=== PATIENT | female | born 1930 | race Caucasian/White ===

== ENCOUNTER 2017-05-18 16:13 | Emergency (ER) | payer MEDICARE, MEDICAID ==
[2017-05-18] VITALS (13 sets, daily range): BP systolic 90–121; BP diastolic 51–63; PULSE 106–143; RESP 17–36; O2SAT 81–98
[~2017-05-18] VITALS: Ht 134.6 cm; Wt 42.6 kg
--- NOTE | 2017-05-18 15:57 | ED.REPORT ---
HPI-General Illness Date of Service May 18, 2017 ED Provider: Darwin Phan Patient is an 86 year old female with a known hx of COPD who presents to the ED via EMS s/p being found unresponsive on the floor by her son. She was last known normal an hour and a half prior to being found. Meds found to her to have an O2 sat of 33% and GCS of 9. Her LOC and sat improved with a non-rebreather. She arrives responsive to verbal stimuli and following commands. Per son, her O2 is usually in the low 90's. Patient's only complaint is that she wants to sleep. She denies chest pain. Per son, pt has been more fatigued and has had increasing SOB today. She has not missed any of her medications. Medications include Lovastatin, losartan, diltiazem, Combivent, Advair, albuterol, and Cerebra. Code status was discussed with the patient upon arrival. She declines to provide a specific answer and repeatedly states "we will see". She was advised that unless specifically instructed otherwise, we would proceed with putting her on a ventilator. Nursing Notes Stated Complaint: UNRESPONSIVE Nursing Notes Reviewed: Yes Allergies: Coded Allergies: acetaminophen (Verified Allergy, Severe, nausea/vomiting, 04/24/11) hydrocodone bitartrate (Verified Allergy, Severe, nausea/vomiting, 04/24/11 ) aspirin (Verified Adverse Reaction, Severe, "BIGGS STOMACH", 07/25/09) Scheduled Albuterol/Ipratropium (Combivent Respimat Inhal [place]) 120 Spr/4 Gm Inhaler 1 PUFF IH QID Alendronate/Vitamin D3 (Alendronate/Vitamin D3) 1 Each Tablet 1 TAB PO WEEKLY SUNDAYS Diltiazem ER (Diltiazem ER) 180 Mg Cap.er.24h 180 MG PO HS Fluticasone/Salmeterol (Advair 250-50 Diskus) 60 Puff/Inh Disk 1 PUFF IH BID Losartan Potassium (Losartan Potassium) 25 Mg Tablet 25 MG PO BID Lovastatin (Lovastatin) 10 Mg Tablet 10 MG PO HS Tiotropium [place] (Spiriva) 18 Mcg Cap.w.dev 18 MCG IH QAM Scheduled PRN Albuterol HFA (Proair HFA) 8.5 Gm Hfa.aer.ad 2 PUFFS INHALATION Q4H PRN PRN For Shortness of Breath Docusate Sodium (Colace) 100 Mg Capsule 100 MG PO HS PRN PRN For Constipation Oxycodone HCl/Acetaminophen 5-325 (Endocet 5-325) 1 Each Tablet 1 TABLET PO DAILY PRN PRN For Pain General Time Seen by MD: 16:17 Chief Complaint Other (LOC ) Hx Obtained From: Other family..., EMS Arrived By: Ambulance Sudden in Onset?: Yes Onset Occurred: Onset unknown Severity: Current: No pain currently Severity: Maximum: No pain Context Related History: Reports COPD Past Medical History Past Medical History COPD Reports: Hyperlipidemia, Hypertension Past Surgical History surgery for broken leg Smoking History Unknown if Ever Smoker Social History Other Social History: Good social support Review of Systems Full Review of Systems Constitutional: Reports: Fatigue Respiratory: Reports: Shortness of breath (now, but not earlier today) Cardiovascular: Denies: Chest pain Neurologic: Reports: Change LOC Complete sys rev & neg: except as marked. Physical Exam Vital Signs Vital Signs Date Time Temp Pulse Resp B/P Pulse Ox O2 Delivery O2 Flow Rate FiO2 05/18/17 18:35 122 32 107/62 96 BiPAP 05/18/17 18:13 130 31 107/62 97 BiPAP 05/18/17 17:51 129 32 101/62 98 BiPAP 05/18/17 17:14 37.4 140 25 116/52 94 BiPAP 05/18/17 16:25 33 95 100 05/18/17 16:24 143 36 121/58 82 Non-Rebreather 15 05/18/17 16:17 37.1 133 33 121/58 81 Non-Rebreather 15 Initial VS: Reviewed, Vital signs abnormal Head / Eyes: Atraumatic, Normocephalic Neck: Full range of motion Abdomen / GI: Soft, Non-tender Neurologic: Alert, Oriented, Nonfocal Psychiatric: Mood/affect normal, Behavior normal, Normal thought content General/Constitutional: Awake, Alert Distress / Hydration: Positive: Distress moderate Respiratory / Chest: Breath sounds = bilat, No wheezing Poor air movement Cardiovascular: Regular rhythm, Heart sounds NL, No gallop, No murmurs, No rubs Heart Rate / Rhythm: Positive: Tachycardia Skin: Warm, Dry Neurologic: Oriented X3, Speech NL, No motor deficits, Reflexes equal bilat Interpretation & Diagnostics Lab Results Interpretation Result Diagram: 05/18/17 1624 05/18/17 1624 Test 05/18/17 16:16 05/18/17 16:24 05/18/17 17:06 05/18/17 17:07 Hold Purple Top Tube Received (Received) D-Dimer > 99.90mg/L FEU (<0.50) Hold Blue Top Tube Received (Received) Hold [place] Top Tube Received (Received) White Blood Count 24.3th/mm3 (3.8-10.1) Red Blood Count 4.21mil/mm3 (3.90-5.20) Hemoglobin 12.8g/dL (12.0-15.6) Hematocrit 41.2% (35.0-46.0) Mean Corpuscular Volume 97.9fL (81-100) Mean Corpuscular Hemoglobin 30.4pg (27.0-35.0) Mean Corpuscular Hemoglobin Concent 31.1% (32.0-37.0) Red Cell Distribution Width 13.7% (12.3-15.4) Platelet Count 269bil/L (150-400) Neutrophils (%) (Auto) 90.1% (40-74) Lymphocytes (%) (Auto) 3.9% (14-46) Monocytes (%) (Auto) 5.4% (4-12) Eosinophils (%) (Auto) 0% (0-5) Basophils (%) (Auto) 0.1% (0-3) Sodium Level 139mEq/L (134-144) Potassium Level 5.2mEq/L (3.5-5.2) Chloride Level 95mEq/L (97-108) Carbon Dioxide Level 21mmol/L (18-29) Blood Urea Nitrogen 22mg/dL (8-27) Creatinine 1.06mg/dL (0.57-1.00) Estimat Glomerular Filtration Rate 71mL/min (>59) Glucose Level 208mg/dL (60-99) Calcium Level 9.8mg/dL (8.5-10.1) Total Bilirubin 0.8mg/dL (0.0-1.2) Aspartate Amino Transf (AST/SGOT) 30U/L (0-50) Alanine Aminotransferase (ALT/SGPT) 16U/L (0-32) Alkaline Phosphatase 113U/L (25-165) Troponin T 0.047ug/L (0.0-0.011) Pro-B-Type Natriuretic Peptide 1193pg/mL (0-738) Total Protein 8.0g/dL (6.4-8.4) Albumin 4.1g/dL (3.4-5.0) Urine Color Yellow (YELLOW) Urine Appearance Hazy (CLEAR,HAZY) Urine pH 6.0 (5.0-8.0) Urine Specific [place] 1.025 (1.003-1.035) Urine Protein 30mg/dL (NEG,TRACE) Urine Glucose (UA) 100mg/dL (NEGATIVE) Urine Ketones Negativemg/dL (NEGATIVE) Urine Occult Blood Trace (NEGATIVE) Urine Nitrite Negative (NEGATIVE) Urine Bilirubin Negative (NEGATIVE) Urine Urobilinogen Normalmg/dL (NORMAL) Urine Leukocyte Esterase Negative (NEGATIVE) Urine RBC 0-2/hpf (0-2) Urine WBC 0-5/hpf (0-5) Urine Epithelial Cells Few/hpf (NONE-MOD) Urine Crystals None seen (NONE SEEN) Urine Bacteria Few/hpf (NONE-FEW) Urine Hyaline Casts None/lpf (NONE) Urine Granular Casts None seen (NONE SEEN) Urine Waxy Casts None seen (NONE SEEN) Urine Red Blood Cell Casts None seen (NONE SEEN) Urine White Blood Cell Casts None seen (NONE SEEN) Urine Mucus None seen (None Seen) Urine Trichomonas None seen (NONE SEEN) Urine Yeast None (NONE SEEN) Urinalysis Comment None Urine Culture Reflexed Not indicated Lactic Acid Level 3.1mmol/L (0.4-2.0) ECG Interpretation ECG Interpretation: Probable Sinus tachycardia with a rate of 142 low voltage, extremity and precordial leads RVH with secondary repolarization abnormality Time: 16:35 Interpreted by: ED physician ECG Interpretation: clearly sinus tachycardia with a rate [address] segment changes Time: 17:30 Interpreted by: ED physician ABG Interpretation ABG Interpretation: on 15L: pH 7.315 pCO2 56 pO2 53.8 cHCO3- 28.5 Exam Performed by: Allied health pract Exam Interpreted by: ED physician X-Ray Chest Interpretation Chest Xray Interpretation: IMPRESSION: 1. Left basilar consolidation suspicious for aspiration/infection. 2. Possible left pleural effusion. Dictated by: Mackenzie Sandoval M.D. on 05/18/2017 at 16:41 Approved by: Mackenzie Sandoval M.D. on 05/18/2017 at 16:42 View: Portable, 1 view Interpretation / Wet Read by: Interpret - Radiologist CT Chest Interpretation IMPRESSION: 1. No acute pulmonary embolus. 2. Dense bilateral basilar consolidation suspicious for aspiration/infection. 3. Large left low-density pleural effusion. Dictated by: Mackenzie Sandoval M.D. on 05/18/2017 at 18:53 Approved by: Mackenzie Sandoval M.D. on 05/18/2017 at 18:58 Study type: CT pulm angiogram Interpretation / Wet Read by: Interpret - Radiologist CT C-Spine Interpretation IMPRESSION: 1. Robby burst fracture. No definite involvement of the transverse foramina; however the comminuted fractures extend near the transverse foramina, and CT neck angiogram may be helpful to exclude vertebral artery dissection. 2. Angled, displaced type II odontoid fracture. 3. T3 inferior endplate compression deformity with retropulsed fracture fragments and a fracture plane which extends into the T3 spinous process. This is a new finding when compared with the prior chest CT dated 02/08/17. Given the lack of cortication, this likely represents an acute fracture. If further characterization is warranted, MRI may be helpful. These findings were discussed with Dr. Granados at 9:21 PM on 05/18/17. 4. Partially fluid filled right mastoid air cells. No temporal bone fracture visualized; however this is a limited study. If there is clinical concern for temporal bone or skull base fracture, dedicated views of the skull base and temporal bones are recommended. Dictated by: Mackenzie Sandoval M.D. on 05/18/2017 at 21:08 Approved by: Mackenzie Sandoval M.D. on 05/18/2017 at 21:27 Study type: CT no contrast Interpretation / Wet Read by: Interpret - Radiologist, Rohan horner radiologist Procedures Intubation Intubation Procedure: Post intubation CXR shows tip in R mainstem. Pulled back 2cm Time: 23:24 Procedure Performed by: ED physician Consent / Setup / Site Prep: Informed consent provided, Consent from patient , Time-out performed, Oxygen administered, Pulse oximeter applied, hospital monitor applied, Hand hygiene observed, Removed dentures Patient Position: Sniff position, C-spine immobilized Blade / ET Tube / Route: [place] scope, Route: oral Procedural Sedation/Analgesia: Sedation: Ketamine, Analgesia: Fentanyl Neuromuscular Agent: Succinylcholine ET Confirmation: Direct visualization, BS equal, End tidal CO2 device, CXR, Rising O2 sat Secured / Marked: ET tube device, Tube marked at ___ cm (23), Tube marked at lip Complications: None Post-Procedure: Condition improved, Tolerated procedure well, Patient stable Re-Eval/Medical Decision Med Decision/Clinical Course An 86-year-old female who was found down in her home with low oxygen saturations and decreased mental status. Mental status improved however she continued to have significantly decreased oxygenation as compared to her baseline. At baseline I note she is on on 2 L nasal cannula. Evaluation was suggestive of pneumonia with sepsis, blood cultures were obtained she was given Levaquin 500 mg IV and saline total of 1500 mL boluses. She had no gross neurologic deficits but began complaining of neck pain. CT of the cervical spine revealed acute cervical spine fracture. Case was discussed with the transfer center at [facility]. Images were reviewed by the spine surgeon, this was felt to be a nonoperative injury however given the presence of critical minimal medical illness and acute cervical spine fracture and the lack of spine services available at [facility], the patient was accepted at [facility]. Intubation was felt necessary for safe transfer. This was discussed with the patient and family, the patient had initially not vital straight answer as to whether or not she would wish to be intubated, per daughter indicated that she had previously said that she would not wish to be intubated however after discussion with patient and family was elected to proceed with intubation tonight . She was intubated to secure the airway for transfer. Transferred via [facility]. Time of Eval: 17:41 Re-Evaluation/Progress Note: Rechecked pt who now complains of neck pain. Discussed plan for CT. Patient understands and agrees with plan. All questions addressed at this time. Time of Eval: 18:46 Re-Evaluation/Progress Note: Rechecked pt who is looking much better. Discussed code status with family present. Patient is FULL CODE. Discussed plan for admission. Patient understands and agrees with plan. All questions addressed at this time. Time of Eval: 19:13 Re-Evaluation/Progress Note: Pt failed trial of stopping bypap. Time of Eval: 21:19 Re-Evaluation/Progress Note: Rechecked pt. Informed pt and family of CT results and plan to transfer to [facility]. Patient understands and agrees with plan. All questions addressed at this time. Time of Eval: 22:45 Re-Evaluation/Progress Note: Discussed plan for transfer and plan for intubation for transfer. Patient is equivocal and family is discussing. Time of Eval: 23:09 Re-Evaluation/Progress Note: Family has decided to intubate for transfer. Consultation #1: Referral / Consult Name: Jovita Campos DO Consulted With: Hospitalist Call Returned at: 19:43 Public Health Epidemiologist: Will see patient, Agrees with eval, Agrees with plan, Accepts admit Note: Rechecked pt. Accepts admit. Consultation #2: Call Returned at: 21:44 Note: Discussed pt's case with automotive sales specialist, Dr. Hemphill, at [facility]. Will review imaging. Consultation #3: Call Returned at: 22:17 Note: Discussed pt's case with Dr. Hemphill at [facility] who suggests a [place] [facility] and a CTL with spine follow up. They would not like to transfer the pt. Consultation #4: Referral / Consult Name: Gus Smalls MD Consulted With: Orthopedic Call Returned at: 22:27 Note: Discussed pt's case. Reports that we cannot manage pt here. Consultation #5: Call Returned at: 22:35 Public Health Epidemiologist: Agrees with eval, Agrees with plan, Accepts admit Note: Discussed pt's case with Dr. Elizabeth at [facility]. Accepts pt. Counseled Regarding: Diagnosis, Lab results, Need for transfer Discharge & Departure Primary Impression: Respiratory failure with hypoxia Chronicity: unspecified Qualified Code: J96.91 - Respiratory failure, unspecified with hypoxia Additional Impressions: Pneumonia Pneumonia type: due to unspecified organism Laterality: unspecified laterality Lung location: unspecified part of lung Qualified Code: J18.9 - Pneumonia, unspecified organism Cervical spine fracture Encounter type: initial encounter Cervical vertebra fracture level: unspecified cervical vertebra Fracture type: closed Qualified Code: S12.9XXA - Fracture of neck, unspecified, initial encounter Disposition: Transfer, Acute Care Facility Receiving Hospital: Mr. Elizabeth at [facility] Transfer Accepted: Yes Transfer Accepted at: 22:47 Transfer Reason: Higher level of care Patient Status: Stable for transfer Patient Informed: Yes Discharge Condition All VS Reviewed: Yes Condition: Stable Referrals: Paz Palomares PA-C (PCP) Crit Care Except Billable Proc Time Spent: 75-104 minutes Services Performed: Patient management by me, Time spent at bedside, Reviewing test results, Reviewing imaging, Discussing patient care, Documentation in record, Time with fam/surrogate Critical Care Notes: required multiple re-evaluations, extensive discussion with family and accepting physicians Scribe Attestation Portions of this note were transcribed by Rachel Naranjo. I, Dr. Granados personally performed the history, physical exam and medical decision-making; I reviewed and confirmed the accuracy of the information in the transcribed note. Signed by: Jing Ribeiro, 05/18/17 copies to: Paz Palomares PA-C, Donald L MD May 18, 2017 15:57 RACHEL NARANJO May 18, 2017 16:04
[~2017-05-18 16:13] MED LIST: ALBU17AE22 INH; BONIVA IV; CMBV14.7IN INH; DOCU100T7 PO; LOVA10TA PO; OXYC-176 PO; [UNRECOGNIZED DRUG - CODE] PO
[2017-05-18] MEDS ORDERED: Succinylcholine Chloride 20 mg/mL 5 mL Inj ONE (16:14)
[2017-05-18] MEDS ORDERED: Ketamine 10 mg/mL 20 mL Inj ONE (16:14)
[2017-05-18] MEDS ORDERED: Albuterol-Ipratropium 3 mL Inhalation Solution NEB ONE (16:20)
--- NOTE | 2017-05-18 16:25 | ABG ---
DateTimeAnalyzed 16:16:04 -_ pH ____7.315 - 7.350 7.450 pCO2 ___55.9__ -mmHg 35.0 45.0 pO2 ___53.8__ -mmHg 69.0 116 HCO3- ___28.5__ -mmol/L 22.0 26.0 ABE ____1.9__ -mmol/L -2.0 2.0 tHb ___11.6__ -g/dL 12.0 18.0 O2Hb ___83.2__ -% COHb ____2.0__ -% 0.0 1.5 MetHb ____0.0__ -% 0.4 1.5 sO2 ___84.7__ -% FIO2 ___90.0__ -% Drawn By jmw - Date/Time Notified____ 16:24:00 -_ Liter_Flow ___15.00_ -L/min Oxygen Device 1 NON RE-TEJINDER - Notified By jmw - Notified Whom _DR SLACK - K+ ____4.1__ -mmol/L 3.5 5.0 tO2 ___13.5__ -Vol% Jose test _Positive -
[2017-05-18 16:27] LABS: BASOPHILS % (AUTO) 0.1 % (0-3); EOSINOPHILS % (AUTO) 0 % (0-5); MONOCYTES % (AUTO) 5.4 % (4-12); Mean Corpuscular Hemoglobin 30.4 pg (27.0-35.0); Mean Corpuscular Volume 97.9 fL (81-100); NEUTROPHILS % (AUTO) 90.1 % (40-74); Platelet Count 269 bil/L (150-400)
[2017-05-18] MEDS ORDERED: MethylprednisoLONE Sodium Succinate 62.5 mg/mL 2 mL Inj ONE (16:34)
[2017-05-18] MEDS ORDERED: MethylprednisoLONE Sodium Succinate 62.5 mg/mL 2 mL Inj IVPUSH ONE (16:35)
--- NOTE | 2017-05-18 16:44 | DRSVH ---
PROCEDURE: X-RAY CHEST ONE VIEW, PORTABLE ([id number]) INDICATIONS: dyspnea and hypoxemia TECHNIQUE: One view of the chest was acquired. COMPARISON: [facility], CR, XR CHEST 2VW, 02/05/2017, 12:27. FINDINGS: Surgical changes and devices: None. Lungs and pleura: There is left basilar consolidation similar in appearance to the study dated 7. There are diffuse interstitial opacities bilaterally. No pneumothorax. There may be a left pleural effusion as well. Mediastinum: Mediastinal contours appear normal. Heart size is normal. Bones and chest wall: No suspicious bony lesions. Overlying soft tissues appear unremarkable. IMPRESSION: 1. Left basilar consolidation suspicious for aspiration/infection. 2. Possible left pleural effusion. Dictated by: Mackenzie Sandoval M.D. on 05/18/2017 at 16:41 Approved by: Mackenzie Sandoval M.D. on 05/18/2017 at 16:42
[2017-05-18 17:07] LABS: TROPONIN T 0.047 ug/L (0.0-0.011)
[2017-05-18] MEDS ORDERED: 0.9% Sodium Chloride 500 ML IV ONE ×2 (17:10→18:50)
[2017-05-18 17:15] LABS: APPEARANCE,URINE HAZY (CLEAR,HAZY); COLOR,URINE YELLOW (YELLOW)
[2017-05-18 17:16] LABS: OCCULT BLOOD,URINE TRACE (NEGATIVE); UROBILINOGEN,URINE NORMAL (NORMAL)
[2017-05-18] MEDS ORDERED: levoFLOXacin Inj 500 MG in IV Premix 1 EACH IV ONE (18:50)
--- NOTE | 2017-05-18 19:00 | DRSVH ---
PROCEDURE: CT ANGIO CHEST PULMONARY EMBOLISM ([id number]) INDICATIONS: tachycardia and hypoxemia TECHNIQUE: After the administration of intravenous contrast, 2 mm thick sections acquired from the pulmonary api brandon to the posterior costophrenic angles. 3-dimensional maximum intensity projection (MIP) coronal a nd sagittal reformats were then acquired through the thorax. For radiation dose reduction, the follo wing was used: automated exposure control, adjustment of mA and/or kV according to patient size. COMPARISON: [facility], CT, CT CHEST WO CON, 02/08/2017, 12:03. FINDINGS: Image quality: Excellent. Pulmonary arteries: Pulmonary arteries are normal in size, and demonstrate no intraluminal filling d efects to suggest central pulmonary embolism. Lungs and pleura: There is severe centrilobular emphysema. There is a large left low-density pleural effusion. Consolidation is present at the bilateral lung bases. No pneumothorax. Mediastinum: Heart size is normal, without pericardial effusion. No mediastinal or hilar adenopathy . Thoracic aorta is normal in caliber and enhancement. Dense atheromatous calcification and atheroma tous plaque is present throughout the thoracic aorta. Esophagus is normal in caliber, without hiatal hernia. Bones and chest wall: Severe kyphosis is present throughout the thoracic spine secondary to multiple severe wedge compression deformities. These are similar in extent to the CT of the chest dated 7. Thyroid gland is poorly characterized.. No axillary or supraclavicular adenopathy. Abdomen: Visualized upper abdominal solid organs appear normal in the early arterial phase of enhanc ement. IMPRESSION: 1. No acute pulmonary embolus. 2. Dense bilateral basilar consolidation suspicious for aspiration/infection. 3. Large left low-density pleural effusion. Dictated by: Mackenzie Sandoval M.D. on 05/18/2017 at 18:53 Approved by: Mackenzie Sandoval M.D. on 05/18/2017 at 18:58
[2017-05-18] MEDS ORDERED: ALBU8.5H2 INHALATION (19:41)
[2017-05-18] MEDS ORDERED: ALEN70TA46 PO (19:41)
[2017-05-18] MEDS ORDERED: DOCU-41 PO (19:43)
[2017-05-18] MEDS ORDERED: IPRA4AER IH (19:43)
[2017-05-18] MEDS ORDERED: LOVA10TA PO (19:43)
[2017-05-18] MEDS ORDERED: DILT180C83 PO (19:43)
[2017-05-18] MEDS ORDERED: TIOT18CA3 IH (19:43)
[2017-05-18] MEDS ORDERED: OXYC-407 PO (19:43)
[2017-05-18] MEDS ORDERED: LOSA25TA21 PO (19:44)
[2017-05-18] MEDS ORDERED: ADV250INH IH (19:45)
[2017-05-18] MEDS ORDERED: Alum-Mag Hydrox-Simeth 30 mL Suspension PO PRN (19:55)
[2017-05-18] MEDS ORDERED: Ondansetron 2 mg/mL 2 mL Inj IVPUSH PRN (19:55)
[2017-05-18] MEDS ORDERED: Albuterol 2.5 mg/3 mL Inhalation Solution NEB PRN (20:05)
[2017-05-18] MEDS ORDERED: Albuterol-Ipratropium 3 mL Inhalation Solution NEB SCH (20:30)
--- NOTE | 2017-05-18 21:14 | PCM.HPMED ---
Subjective Date of Service May 18, 2017 Primary Provider: Admitting Physician: Jovita Campos DO Primary Care Physician: Paz Palomares PA-C Attending Physician: Jovita Campos DO Admit Status: From the Emergency Department, Critical Care Chief Complaint: Decreased level of consciousness and shortness of breath Review of Systems: Comprehensive review of systems was conducted with the patient and found to be negative except as noted above in HPI. Allergies Coded Allergies: acetaminophen (Verified Allergy, Severe, nausea/vomiting, 04/24/11) hydrocodone bitartrate (Verified Allergy, Severe, nausea/vomiting, 04/24/11 ) aspirin (Verified Adverse Reaction, Severe, "BIGGS STOMACH", 07/25/09) Home Medications Alendronate Diltiazem ER 180 mg nightly Lovastatin 10 mg nightly Losartan 25 mg twice a day Pro-air when necessary Combivent twice a day Advair twice a day Spiriva twice a day PMH Osteoporosis with spinal fractures Enlarged heart - children think this is secondary to COPD therefore likely right heart failure COPD Hypertension Hypercholesterolemia Surgical History Hysterectomy Left knee surgery for fracture Family History Mother - , CVA and alcoholic Father - No significant family history of cancer or cardiovascular disease Social History Hx Alcohol Use: No Hx Substance Use: No Hx Tobacco Use: No Smoking Status: Former Smoker (smoked for 60 years and quit 20 years ago) Living Arrangement: with Family (lives with son) Exam Vital Signs Vital Sign - Last Date Time Temp Pulse Resp B/P Pulse Ox O2 Delivery O2 Flow Rate FiO2 05/18/17 19:59 121 29 90/51 95 BiPAP 05/18/17 17:14 37.4 05/18/17 16:25 100 05/18/17 16:24 15 Exam General: Frail, cachectic woman in mild distress. Lab and Diagnostics Result Diagram: 05/18/17 1624 05/18/17 1624 Assessment & Plan Alon Huddleston is an 86-year-old female with past medical issues significant for COPD who presents with decreased level of consciousness likely secondary to oxygen saturations in the 30s who is admitted for acute hypoxic respiratory failure. Decreased level of consciousness secondary to acute hypoxic respiratory failure , present on admission, active. Acute COPD exacerbation, present on admission, active. - Patient requiring BiPAP to maintain oxygen saturations between 88-92%. Discussed with patient and she does not wish to proceed with intubation if respiratory status declines. - Patient given methylprednisolone 125 mg in the ER. We will continue with - Continue home regimen Combivent, Advair, and Spiriva. - Duonebs every 4 hours while awake. - Albuterol every 2 hours when necessary shortness of breath. - Community acquired pneumonia with possibility of aspiration, present on admission, active. - In the ER patient was given Levaquin. - Supraventricular tachycardia, present on admission, active. - Patient's home regimen includes diltiazem ER 180 mg nightly. - We will restart home regimen and continue to monitor. Osteoporosis with spinal fractures, present on admission, chronic. - Patient on weekly alendronate. Verify last dose and day team to continue if deemed appropriate. Hypertension, present on admission, chronic. - Hold home regimen of losartan 25 mg twice a day at this time. Hypercholesterolemia, present admission, chronic. - We will hold lovastatin at this time. PRN Medications - Bowel regimen as needed - Antiemetic as needed Patient is admitted under inpatient status with expected length of stay greater than 2 midnights due to severity of presenting symptoms, risk of adverse event, and complexity of treatment plan. TOSHA NARVAEZ DO May 18, 2017 21:14 Osteoporosis with spinal fractures, present on admission, chronic. - Patient on weekly alendronate. Verify last dose and day team to continue if deemed appropriate. Hypertension, present on admission, chronic. - Hold home regimen of losartan 25 mg twice a day at this time. Hypercholesterolemia, present admission, chronic. - We will hold lovastatin at this time. PRN Medications - Bowel regimen as needed - Antiemetic as needed Patient is admitted under inpatient status with expected length of stay greater than 2 midnights due to severity of presenting symptoms, risk of adverse event, and complexity of treatment plan. TOSHA NARVAEZ DO May 18, 2017 21:14
[2017-05-18] MEDS ORDERED: Fluticasone-Salmererol 250-50 Inhaler INHALATION SCH (21:15)
[2017-05-18] MEDS ORDERED: Tiotropium 18mcg/Cap 5 Capsule Inhaler Kit INHALATION SCH (21:15)
[2017-05-18] MEDS ORDERED: Diltiazem CD 180 mg ER24 Capsule PO SCH (21:20)
[2017-05-18] MEDS ORDERED: HYDROmorphone 0.5 mg/0.5 mL iSecure Syringe IM ONE (21:20)
--- NOTE | 2017-05-18 21:29 | DRSVH ---
PROCEDURE: CT CERVICAL SPINE WITHOUT CONTRAST ([id number]) INDICATIONS: neck pain TECHNIQUE: Noncontrast 3 mm thick sections acquired from the skull base to the T4 level. Sagittal and coronal r eformats were then constructed. For radiation dose reduction, the following was used: automated exp osure control, adjustment of mA and/or kV according to patient size. COMPARISON: [facility], CT, CT CHEST WO CON, 02/08/2017, 12:03. [facility], CT, CT ANGIO CHEST PE, 05/18/2017, 18:12. FINDINGS: Image quality: Excellent. Bones: There is a comminuted, displaced C1 fracture. The C1 fracture planes extend near the transvers e processes, but do not definitely extend into the transverse processes. There is a displaced, angula jasper type II odontoid fracture. There is an inferior T3 endplate compression deformity with retropulse d fracture fragments. The fracture plane extends into the T3 spinous process. No definite cortication is present in this region. This is a new finding when compared with the CT dated 02/08/17. The right mastoid air cells are partially fluid filled and incompletely characterized on this limited view. Soft tissues: Prevertebral soft tissues are normal in thickness. There is a large low density left pl eural effusion. There is severe centrilobular emphysema. There is dense consolidation within the visu alized portions of the left lower lobe. Dense atheromatous calcifications are present at the aortic a rch. The central airway is patent. IMPRESSION: 1. Robby burst fracture. No definite involvement of the transverse foramina; however the comminut ed fractures extend near the transverse foramina, and CT neck angiogram may be helpful to exclude dipak tebral artery dissection. 2. Angled, displaced type II odontoid fracture. 3. T3 inferior endplate compression deformity with retropulsed fracture fragments and a fracture plan e which extends into the T3 spinous process. This is a new finding when compared with the prior chest CT dated 02/08/17. Given the lack of cortication, this likely represents an acute fracture. If furthe r characterization is warranted, MRI may be helpful. These findings were discussed with Dr. Granados at 9:21 PM on 05/18/17. 4. Partially fluid filled right mastoid air cells. No temporal bone fracture visualized; however this is a limited study. If there is clinical concern for temporal bone or skull base fracture, dedicated views of the skull base and temporal bones are recommended. Dictated by: Mackenzie Sandoval M.D. on 05/18/2017 at 21:08 Approved by: Mackenzie Sandoval M.D. on 05/18/2017 at 21:27
[2017-05-18] MEDS ORDERED: HYDROmorphone 0.5 mg/0.5 mL iSecure Syringe IVPUSH ONE (21:30)
[2017-05-18] MEDS ORDERED: Succinylcholine Chloride 20 mg/mL 5 mL Inj IVPUSH ONE (23:15)
[2017-05-18] MEDS ORDERED: Ketamine 10 mg/mL 20 mL Inj IV ONE (23:15)
[2017-05-18] MEDS ORDERED: fentaNYL-PF 50 mCg/mL 2 mL Inj IVPUSH ONE (23:15)
[2017-05-19] MEDS ORDERED: Heparin 5,000 Unit/mL Inj SUBQ SCH (00:30)
--- NOTE | 2017-05-19 14:43 | DRSVH ---
PROCEDURE: X-RAY CHEST ONE VIEW, PORTABLE ([id number]) INDICATIONS: post intubation TECHNIQUE: One view of the chest was acquired. COMPARISON: [facility], CR, XR CHEST 1VW (PORTABLE), 05/18/2017, 16:08. FINDINGS: Surgical changes and devices: ETT tip projected over the origin of the right mainstem bronchus. Lungs and pleura: Diffuse interstitial opacities are present as well as bibasilar airspace opacity, l eft greater than right. Moderate left pleural effusion. No pneumothorax. Mediastinum: Mediastinal contours appear normal. Heart size is normal. Bones and chest wall: No suspicious bony lesions. Overlying soft tissues appear unremarkable. Mild S-shaped scoliosis and diffuse osteopenia noted. IMPRESSION: 1. ETT tip projected over the origin of the right mainstem bronchus. 2. Edema and/or pneumonia involving the lung bases, left greater than right. 3. Moderate left pleural effusion. Dictated by: Andrew LEE Interpreted: Otto López MD on 05/19/2017 at 8:44 Approved by: Otto López M.D. on 05/19/2017 at 14:41
[2017-05-19] MEDS ORDERED: Diltiazem CD 180 mg ER24 Capsule PO SCH (21:00)
== END 2017-05-18 23:50 | disposition short-term general hospital (02) ==
LOC: SED 16:13 → CCU 19:02 → UNDOADMIN 19:02 → SED 23:50
DX: J96.91 Respiratory failure, unspecified with hypoxia (principal); J18.9 Pneumonia, unspecified organism; S12.090A Other displaced fracture of first cervical vertebra, initial encounter for closed fracture; W01.0XXA Fall on same level from slipping, tripping and stumbling without subsequent striking against object, initial encounter; Y93.89 Activity, other specified; Y99.8 Other external cause status; Y92.018 Other place in single-family (private) house as the place of occurrence of the external cause; J44.9 Chronic obstructive pulmonary disease, unspecified; E78.5 Hyperlipidemia, unspecified; I10 Essential (primary) hypertension; Z79.51 Long term (current) use of inhaled steroids; Z88.5 Allergy status to narcotic agent; Z88.6 Allergy status to analgesic agent
CPT/HCPCS: 31500; 36415; 36620; 51702; 71010; 71275; 72125; 80053; 81000; 82375; 82803; 83605; 83880; 84484; 85025; 85378; 87040; 93005; 94660; 94799; 96365; 96375; 99291; 99292; J0330; J1170; J2250; J2270; J2930; J3010; J7040; J7620; Q9967